=== PATIENT | female | born 1965 | race Hispanic/Latino ===

== ENCOUNTER 2019-01-04 06:55 | Observation (INO) | payer OTHER ==
[2019-01-03 16:00] LABS: BASOPHILS % (AUTO) 0.9 % (0.0-5.0); EOSINOPHILS % (AUTO) 3.1 % (0.0-8.0); HEMATOCRIT 41.3 % (36-48); LYMPHOCYTES % (AUTO) 35.6 % (21.0-51.0); MEAN CORPUSCULAR HEMOGLOBIN 29.4 pg (27.0-33.0); MEAN CORPUSCULAR HGB CONC 32.9 g/dL (32.0-36.0); MEAN CORPUSCULAR VOLUME 89.6 fL (79-99); MONOCYTES % (AUTO) 8.7 % (3.0-13.0); NEUTROPHILS % (AUTO) 51.7 % (40.0-77.0); NUCLEATED RED BLOOD CELLS 0.1 % (0.0-0.19); PLATELET COUNT (AUTO) 234 K/uL (130-400); RED BLOOD CELL COUNT(AUTO) 4.61 MIL/uL (4.00-5.50); RED CELL DISTRIBUTION WIDTH 13.2 % (11.0-15.5); WHITE BLOOD COUNT (AUTO) 6.7 K/uL (4.8-10.8)
[2019-01-03 16:23] VITALS: BP 133/96
[2019-01-04] VITALS (19 sets, daily range): BP systolic 122–162; BP diastolic 54–91
[~2019-01-04] VITALS: Ht 154.9 cm; Wt 79.0 kg
[~2019-01-04 06:55] MED LIST: IBUP-14 PO; LACTATED RINGERS 1000ML 1,000 ML IV SCH; TAMO20TA4 PO
[2019-01-04] MEDS ORDERED: CEFAZOLIN SODIUM 1 GM VIAL ONE (07:25)
[2019-01-04] MEDS ORDERED: PROPOFOL 10 MG/ML 20ML VIAL IV ONE (08:18)
[2019-01-04] MEDS ORDERED: LIDOCAINE PF 2% 5ML ABBOJECT ONE (08:18)
[2019-01-04] MEDS ORDERED: FENTANYL CITRATE PF 50 MCG/1 ML 2ML VIAL ONE ×2 (08:19)
[2019-01-04] MEDS ORDERED: MIDAZOLAM HCL 1 MG/ML 2ML VIAL ONE (08:19)
[2019-01-04] MEDS ORDERED: ROCURONIUM 10MG/1ML SYR 10 MG/ML ML ONE ×2 (08:19→09:26)
[2019-01-04] MEDS ORDERED: ONDANSETRON HCL 4 MG/2 ML VIAL ONE (08:47)
[2019-01-04] MEDS ORDERED: DEXAMETHASONE SOD PHOSPHATE 10MG/ML 1ML VIAL ONE (08:47)
[2019-01-04] MEDS ORDERED: NEOSTIGMINE 5MG/5ML SYR IV ONE (11:02)
[2019-01-04] MEDS ORDERED: GLYCOPYRROLATE 1 MG/5 ML SYRINGE ONE (11:02)
[2019-01-04] MEDS ORDERED: MEPERIDINE-PF 25 MG/ML SYG ONE ×4 (11:48→18:01)
--- NOTE | 2019-01-04 12:50 | NUR ---
ARRIVED PATIENT ARRIVED FROM PACU VIA BED ACCOMPANIED BY KIAN JACKSON. PATIENT IS DROWSY, AROUSED TO VOICE. CALL LIGHT LEFT IN REACH OF PATIENT, ADVISED PATIENT TO CALL WITH ANY NEEDS OR CONCERNS. PATIENT NODDED IN AGREEABLY. BANDAIDS TO [id number]. OB PAD HAS SCANT BLEEDING. CHRISTIAN CATHETER TO BEDSIDE DRAINING RED TINGED URINE. SCDS AND TEDS TO LOWER BILATERAL EXTREMITIES.CALL LIGHT LEFT IN REACH OF PATIENT, ADVISED PATIENT TO CALL WITH ANY NEEDS OR CONCERNS. PATIENT NODDED AGREEABLY.
[2019-01-04] MEDS ORDERED: MEPERIDINE-PF 75 MG/ML SYG IM PRN (13:15)
[2019-01-04] MEDS ORDERED: SIMETHICONE 80 MG TAB.CHEW PO PRN (13:15)
[2019-01-04] MEDS ORDERED: ACETAMINOPHEN-CODEINE 300/30MG TAB PO PRN (13:15)
[2019-01-04] MEDS ORDERED: PROMETHAZINE HCL 25 MG/ML 1ML AMPULE IM PRN ×4 (13:15→14:30)
[2019-01-04] MEDS ORDERED: BISACODYL 10 MG SUPP.RECT RC PRN (13:15)
[2019-01-04] MEDS ORDERED: DOCUSATE SODIUM 100 MG CAP PO PRN (13:15)
[2019-01-04] MEDS ORDERED: IBUPROFEN 600 MG TABLET PO PRN (13:15)
[2019-01-04] MEDS ORDERED: ONDANSETRON HCL 4 MG/2 ML VIAL IVP PRN (13:15)
[2019-01-04] MEDS ORDERED: MEPERIDINE-PF 50 MG/ML SYG ONE ×2 (14:09→18:01)
[2019-01-04] MEDS: NITROFURANTOIN MONOHYD/M-CRYST 100 MG CAPSULE PO SCH (20:42)
[2019-01-04] MEDS: DEXTROSE 5 %-0.45 % NACL 1,000 ML IV PRN (20:52)
[2019-01-05 03:31] VITALS: BP 122/66
[2019-01-05] MEDS: DEXTROSE 5 %-0.45 % NACL 1,000 ML IV PRN (04:19)
[2019-01-05 05:42] LABS: HEMATOCRIT 39.3 % (36-48); MEAN CORPUSCULAR HEMOGLOBIN 29.9 pg (27.0-33.0); MEAN CORPUSCULAR HGB CONC 32.9 g/dL (32.0-36.0); PLATELET COUNT (AUTO) 231 K/uL (130-400); RED BLOOD CELL COUNT(AUTO) 4.32 MIL/uL (4.00-5.50); RED CELL DISTRIBUTION WIDTH 13.2 % (11.0-15.5); WHITE BLOOD COUNT (AUTO) 11.9 K/uL (4.8-10.8)
[2019-01-05 08:00] VITALS: BP 98/52
--- NOTE | 2019-01-05 08:25 | NUR ---
DR. REYNAGA AT BEDSIDE TO ASSESS AND TALK TO PT. NEW ORDERS RECEIVED FOR DISCHARGE
[2019-01-05] MEDS: NITROFURANTOIN MONOHYD/M-CRYST 100 MG CAPSULE PO SCH (08:45)
[2019-01-05 12:07] VITALS: BP 98/55
--- NOTE | 2019-01-05 15:45 | NUR ---
DISCHARGE PT LEFT UNIT VIA WHEELCHAIR, ACCOMPANIED BY FAMILY. DENIED PAIN AND HAD NO COMPLAINTS. TRANSPORTED BY PERSONAL VEHICLE.
== END 2019-01-05 15:45 | disposition home or self-care (01) ==
LOC: DAH 06:55 → UNDOADMOB 06:56 → DAH 06:56 → WSH 06:56
PROVIDERS: ADMIT Obstetrics & Gynecology; ATTEND Obstetrics & Gynecology
DX: D25.9 Leiomyoma of uterus, unspecified (principal); N73.6 Female pelvic peritoneal adhesions (postinfective); G89.29 Other chronic pain; K66.8 Other specified disorders of peritoneum; Z98.891 History of uterine scar from previous surgery; Z83.3 Family history of diabetes mellitus; Z82.49 Family history of ischemic heart disease and other diseases of the circulatory system
CPT/HCPCS: 36415 ×2; 58552; 84703; 85025; 85027; 86850; 86900; 86901; 88307; 96372; A4215; A4344; A4351; A4649 ×4; A4930 ×2; C1769 ×3; G0378 ×30; J0690; J1100; J2001; J2175 ×6; J2250; J2405; J2550 ×2; J2704; J2710; J3010 ×2; J3490; J7030; J7120 ×2

== ENCOUNTER → 2019-01-25 | Outpatient (CLI) | payer OTHER ==
[~2019-01-25] MED LIST changes: -LACTATED RINGERS 1000ML 1,000 ML IV SCH
== END | disposition home or self-care (01) ==
LOC: RAH 08:52
PROVIDERS: ATTEND Internal Medicine Medical Oncology
DX: C50.412 Malignant neoplasm of upper-outer quadrant of left female breast (principal)
CPT/HCPCS: 77066

== ENCOUNTER → 2020-01-30 | Outpatient (CLI) | payer OTHER | END | disposition home or self-care (01) | LOC: RAH 13:17 | PROVIDERS: ATTEND Internal Medicine Medical Oncology | DX: C50.919 Malignant neoplasm of unspecified site of unspecified female breast (principal); R92.8 Other abnormal and inconclusive findings on diagnostic imaging of breast | CPT/HCPCS: 77066 ==